=== PATIENT | female | born 1960 | race Caucasian/White ===

== ENCOUNTER 2016-07-22 16:51 | Emergency (ER) | payer SELFPAY ==
[~2016-07-22] VITALS: Ht 154.9 cm; Wt 70.2 kg
[~2016-07-22 16:51] MED LIST: ASPI81TA11 PO
[2016-07-22 17:05] VITALS: BP 131/69; PULSE 88; RESP 14; TEMP 99.4; O2SAT 94
--- NOTE | 2016-07-22 17:48 | PD ---
HPI Chief Complaint: Respiratory Symptoms Time Seen by Provider: 17:46 Travel History International Travel<30 days: No Contact w/Intl Traveler<30days: No Traveled to known affect area: No History of Present Illness HPI Patient comes in complaining of cough, congestion, and sore throat ongoing for 2 days. Patient has been using [id number] cold flu medication as well as her daughter's nebulizer with minimal to no relief of her symptoms. Denies anything making it worse. Denies any chest pain, shortness of breath, nausea, diarrhea, abdominal pain, back pain, or neck pain. Patient's daughter has similar but has improved. PFSH Past Medical History Anxiety: Yes Cardiovascular Problems: No Genitourinary: No Musculoskeletal: No Neurologic: No Reproductive: No Respiratory: No Tetanus Vaccination: > 5 Years Influenza Vaccination: No ?: Not Social History Alcohol Use: No Tobacco Use: No Substance Use: No Allergies-Medications (Allergen,Severity, Reaction): Coded Allergies: No Known Allergies (Unverified , 07/22/16) Reported Meds & Prescriptions Reported Meds & Active Scripts Active Medrol Dosepak (Methylprednisolone) 4 Mg Dspk 4 Mg PO DIRECTED Per Pharmacist direction Ventolin Hfa 18 GM Inh (Albuterol Sulfate) 90 Mcg/Act Aer 2 Puff INH Q4H PRN Review of Systems Except as stated in HPI: all other systems reviewed are Neg Physical Exam Narrative GENERAL: Well-developed, overly nourished, in no acute distress, and non-ill appearing. SKIN: Focused skin assessment warm and dry. HEAD: Atraumatic. Normocephalic. EYES: Pupils equal and round. EOMI. No scleral icterus. No injection or drainage. ENT: No nasal bleeding or discharge. Mucous membranes pink and moist. Tympanic membranes pearly jeffries bilaterally. Posterior pharynx nonerythematous without exudate. Uvula is midline. No tenderness to facial sinuses to palpation. NECK: Trachea midline. No cervical lymphadenopathy. Supple. No nuclear rigidity. CARDIOVASCULAR: Regular rate and rhythm. No murmur appreciated. RESPIRATORY: No accessory muscle use. No respiratory distress. Clear to auscultation. Breath sounds equal bilaterally. Hacking cough on exam. MUSCULOSKELETAL: No obvious deformities. No clubbing. No cyanosis. No edema. Full range of motion. NEUROLOGICAL: Awake and alert. No obvious cranial nerve deficits. Motor grossly within normal limits. Normal speech. PSYCHIATRIC: Appropriate mood and affect; insight and judgment normal. Data Data Last Documented VS Vital Signs Date Time Temp Pulse Resp B/P Pulse Ox O2 Delivery O2 Flow Rate FiO2 07/22/16 17:05 99.4 88 14 131/69 94 Orders Group A Rapid Strep Screen (07/22/16 17:45) Influenzae A/B Antigen (07/22/16 17:45) Chest, Single Ap (07/22/16 ) Strep Culture (Group A) (07/22/16 18:00) MDM Medical Decision Making Medical Screen Exam Complete: Yes Emergency Medical Condition: Yes Differential Diagnosis Influenza, strep pharyngitis, pneumonia, bronchitis, upper respiratory infection , viral syndrome, other Narrative Course Patients symptom complex of cough and congestion is consistent with viral URI. The patient is non-ill appearing and is in no respiratory distress and comfortable. The patient moves air well and oxygen saturations are normal. There is no clinical evidence to suggest pneumonia at this time. Plan of care and management were discussed with the patient who agreed with plan. The patient was instructed to follow up with their physician and instructed to return if worsens, progressively worsening shortness of breath or difficulty breathing, persistent fever, chest pains or discomfort, inability to keep medication or fluids down with or without vomiting, or as needed. Patient in no obvious distress upon re-evaluation. All pertinent laboratory/ Radiology result(s) discussed with patient. Patient was asked if they wanted to speak to my attending, which the patient did not wish to do at this time. Any questions/concerns in reference to patient diagnosis/condition discussed and clarified prior to patient's discharge. Reinforced sheer importance of close follow up with patient's primary physician or primary care clinic. Instructed patient to return to ED immediately, if symptoms return/worsen. Pt showed understanding of above instructions. Further instructions and recommendations were detailed in discharge paperwork. Pt ambulated without difficulty out of ED at discharge. Diagnosis Primary Impression: Upper respiratory infection, viral Patient Instructions: General Instructions, Upper Respiratory Infection (ED) Additional Instructions: Follow-up with your primary care physician in 3-5 days for reevaluation. Take all medication as prescribed. Drink plenty of non-caffeinated and nonalcoholic fluids. Return to the emergency department if symptoms get worse. Med/Other Pt SpecificInfo: Prescription(s) given Scripts Methylprednisolone Dosepak (Medrol Dosepak)4 Mg Dspk4 Mg PO DIRECTED #1 DSPK Ref 0 Per Pharmacist direction Prov:Keke Abreu DO 07/22/16 Albuterol 18 GM Inh (Ventolin Hfa 18 GM Inh)90 Mcg/Act Aer2 Puff INH Q4H PRN ( COUGH) #1 INHALER Ref 0 Prov:Keke Abreu DO 07/22/16 Disposition: 01 DISCHARGE HOME Condition: Stable Jg Rivera Jul 22, 2016 17:48
--- NOTE | 2016-07-22 19:26 | RADHPO ---
EXAM DATE/TIME: 07/22/2016 17:59 [facility] COMPARISON: CHEST SINGLE AP, November 09, 2015, 19:30. INDICATIONS : Short of breath, cough, chest pains MEDICAL HISTORY : None. SURGICAL HISTORY : None. ENCOUNTER: Initial ACUITY: 2 days PAIN SCORE: 5/10 LOCATION: Bilateral chest FINDINGS: A single view of the chest demonstrates the lungs to be symmetrically aerated without evidence of mas s, infiltrate or effusion. The cardiomediastinal contours are unremarkable. Osseous structures are intact. CONCLUSION: The lungs are clear. Tan Dewitt MD on July 22, 2016 at 19:25 Board Certified Radiologist. This report was verified electronically.
[2016-07-22] MEDS ORDERED: MEDR4PAK PO (19:28)
[2016-07-22] MEDS ORDERED: VENTAER INH (19:28)
== END 2016-07-22 19:37 | disposition home or self-care (01) ==
LOC: PHEFT 16:51
DX: J06.9 Acute upper respiratory infection, unspecified (principal); F41.9 Anxiety disorder, unspecified; Z79.899 Other long term (current) drug therapy
CPT/HCPCS: 71010; 87081; 87804; 87880; 99283

== ENCOUNTER 2016-07-24 14:01 | Emergency (ER) | payer SELFPAY ==
[~2016-07-24] VITALS: Ht 154.9 cm; Wt 59.0 kg
[~2016-07-24 14:01] MED LIST changes: -ASPI81TA11 PO; +MEDR4PAK PO; +VENTAER INH
[2016-07-24 14:06] VITALS: BP 152/81; PULSE 84; RESP 18; TEMP 99; O2SAT 97
[2016-07-24] MEDS ORDERED: SODIUM CHLOR 0.9% 1000 ML INJ 1,000 ML IV SCH (14:25)
[2016-07-24 14:27] LABS: BLOOD, URINE TRACE (NEG); GLUCOSE,URINE 500 mg/dL (NEG); KETONE, URINE TRACE mg/dL (NEG); NITRITE,URINE NEG (NEG)
[2016-07-24] MEDS ORDERED: SODIUM CHLORIDE 0.9% FLUSH 10 ML FLUSH IV FLUSH PRN (14:30)
[2016-07-24] MEDS ORDERED: KETOROLAC TROMETHAMINE 30 MG/ML (IVP) VIAL IVP ONE (14:30)
[2016-07-24] MEDS ORDERED: ONDANSETRON HCL 4 MG/2 ML VIAL IVP ONE (14:30)
--- NOTE | 2016-07-24 14:30 | PD ---
HPI Chief Complaint: Abdominal Pain Time Seen by Provider: 14:25 Travel History International Travel<30 days: No Contact w/Intl Traveler<30days: No Traveled to known affect area: No History of Present Illness HPI The patient is a 56-year-old female who presents emergency department for abdominal pain. The patient states she was seen in the emergency department approximately one week ago for upper respiratory infection and bronchitis. The patient was placed on prednisone and an inhaler. The patient has been having cough and cold symptoms over the last several days, then developed right lower quadrant abdominal pain this morning. The pain is located right lower quadrant , worse with coughing, mildly alleviated at rest, and tender to palpation. The patient denies any nausea, vomiting, dysuria, frequency, or urgency. The patient's last bowel movement was yesterday, normal per her report. The patient denies any fever, chills, or sweats. Symptoms are moderate. The pain is nonradiating and localized to the right lower quadrant. PFSH Past Medical History Anxiety: Yes Cardiovascular Problems: No Diminished Hearing: No Genitourinary: No Musculoskeletal: No Neurologic: No Reproductive: No Respiratory: Yes (asthma) Influenza Vaccination: No ?: Not Social History Alcohol Use: No Tobacco Use: No Substance Use: No Allergies-Medications (Allergen,Severity, Reaction): Coded Allergies: No Known Allergies (Unverified , 07/24/16) Reported Meds & Prescriptions Reported Meds & Active Scripts Active Ultram (Tramadol HCl) 50 Mg Tab 50 Mg PO Q4H PRN Medrol Dosepak (Methylprednisolone) 4 Mg Dspk 4 Mg PO DIRECTED Per Pharmacist direction Ventolin Hfa 18 GM Inh (Albuterol Sulfate) 90 Mcg/Act Aer 2 Puff INH Q4H PRN Review of Systems Except as stated in HPI: all other systems reviewed are Neg General / Constitutional: No: Fever HENT: Positive: Congestion Respiratory: Positive: Cough Gastrointestinal: Positive: Abdominal Pain, No: Nausea, Vomiting, Diarrhea, Changes in Bowel Habits Genitourinary: No: Urgency, Frequency, Dysuria Musculoskeletal: No: Myalgias Skin: No Rash Physical Exam Narrative GENERAL: Awake, alert, pleasant 56-year-old female who appears her stated age and is in no acute respiratory distress. SKIN: Focused skin assessment warm/dry. HEAD: Atraumatic. Normocephalic. EYES: No injection or drainage. ENT: No nasal bleeding or discharge. Mucous membranes pink and moist. NECK: Trachea midline. No JVD. CARDIOVASCULAR: Regular rate and rhythm. No murmur appreciated. RESPIRATORY: No accessory muscle use. Clear to auscultation. Breath sounds equal bilaterally. GASTROINTESTINAL: Abdomen soft, tender palpation right lower quadrant. No rebound tenderness. Back: No CVA tenderness. MUSCULOSKELETAL: No obvious deformities. No clubbing. No cyanosis. No edema. NEUROLOGICAL: Awake and alert. No obvious cranial nerve deficits. Motor grossly within normal limits. Normal speech. PSYCHIATRIC: Appropriate mood and affect; insight and judgment normal. Data Data Last Documented VS Vital Signs Date Time Temp Pulse Resp B/P Pulse Ox O2 Delivery O2 Flow Rate FiO2 07/24/16 17:04 88 18 144/76 98 07/24/16 14:37 Room Air 07/24/16 14:06 99.0 Orders Urinalysis - C+S If Indicated (07/24/16 14:15) Complete Blood Count With Diff (07/24/16 14:25) Comprehensive Metabolic Panel (07/24/16 14:25) Lipase (07/24/16 14:25) Iv Access Insert/Monitor (07/24/16 14:25) Ecg Monitoring (07/24/16 14:25) Oximetry (07/24/16 14:25) Ondansetron Inj (Zofran Inj) (07/24/16 14:30) Sodium Chlor 0.9% 1000 Ml Inj (Ns 1000 M (07/24/16 14:25) Sodium Chloride 0.9% Flush (Ns Flush) (07/24/16 14:30) Ketorolac Inj (Toradol Inj) (07/24/16 14:30) Ct Abd/Pel W/O Iv Contrast (07/24/16 ) Labs Laboratory Tests Test 07/24/16 07/24/16 14:15 14:25 Urine Collection Type CLEAN CATCH Urine Color YELLOW Urine Turbidity CLEAR Urine pH 6.0 Urine Specific [place] 1.025 Urine Protein 30 mg/dL Urine Glucose (UA) 500 mg/dL Urine Ketones TRACE mg/dL Urine Occult Blood TRACE Urine Nitrite NEG Urine Bilirubin NEG Urine Leukocyte Esterase NEG Urine RBC 0-3 /hpf Urine WBC 0-2 /hpf Urine Squamous Epithelial 6-8 /hpf Cells Urine Hyaline Casts 15-19 /lpf Microscopic Urinalysis Comment CULT NOT INDICATED Urine Collection Time 14:15 White Blood Count 11.6 TH/MM3 Red Blood Count 4.66 MIL/MM3 Hemoglobin 13.4 GM/DL Hematocrit 40.5 % Mean Corpuscular Volume 87.0 FL Mean Corpuscular Hemoglobin 28.8 PG Mean Corpuscular Hemoglobin 33.1 % Concent Red Cell Distribution Width 12.7 % Platelet Count 157 TH/MM3 Mean Platelet Volume 9.5 FL Neutrophils (%) (Auto) 80.6 % Lymphocytes (%) (Auto) 12.1 % Monocytes (%) (Auto) 6.8 % Eosinophils (%) (Auto) 0.1 % Basophils (%) (Auto) 0.4 % Neutrophils # (Auto) 9.4 TH/MM3 Lymphocytes # (Auto) 1.4 TH/MM3 Monocytes # (Auto) 0.8 TH/MM3 Eosinophils # (Auto) 0.0 TH/MM3 Basophils # (Auto) 0.0 TH/MM3 CBC Comment DIFF FINAL Differential Comment Sodium Level 135 MEQ/L Potassium Level 4.4 MEQ/L Chloride Level 100 MEQ/L Carbon Dioxide Level 24.7 MEQ/L Anion Gap 10 MEQ/L Blood Urea Nitrogen 16 MG/DL Creatinine 1.10 MG/DL Estimat Glomerular Filtration 51 ML/MIN Rate Random Glucose 284 MG/DL Calcium Level 9.1 MG/DL Total Bilirubin 0.3 MG/DL Aspartate Amino Transf 52 U/L (AST/SGOT) Alanine Aminotransferase 73 U/L (ALT/SGPT) Alkaline Phosphatase 69 U/L Total Protein 8.0 GM/DL Albumin 3.3 GM/DL Lipase 299 U/L [facility] Medical Decision Making Medical Screen Exam Complete: Yes Emergency Medical Condition: Yes Medical Record Reviewed: Yes Interpretation(s) Laboratory Tests Test 07/24/16 07/24/16 14:15 14:25 Urine Collection Type CLEAN CATCH Urine Color YELLOW Urine Turbidity CLEAR Urine pH 6.0 Urine Specific [place] 1.025 Urine Protein 30 mg/dL Urine Glucose (UA) 500 mg/dL Urine Ketones TRACE mg/dL Urine Occult Blood TRACE Urine Nitrite NEG Urine Bilirubin NEG Urine Leukocyte Esterase NEG Urine RBC 0-3 /hpf Urine WBC 0-2 /hpf Urine Squamous Epithelial 6-8 /hpf Cells Urine Hyaline Casts 15-19 /lpf Microscopic Urinalysis Comment CULT NOT INDICATED Urine Collection Time 14:15 White Blood Count 11.6 TH/MM3 Red Blood Count 4.66 MIL/MM3 Hemoglobin 13.4 GM/DL Hematocrit 40.5 % Mean Corpuscular Volume 87.0 FL Mean Corpuscular Hemoglobin 28.8 PG Mean Corpuscular Hemoglobin 33.1 % Concent Red Cell Distribution Width 12.7 % Platelet Count 157 TH/MM3 Mean Platelet Volume 9.5 FL Neutrophils (%) (Auto) 80.6 % Lymphocytes (%) (Auto) 12.1 % Monocytes (%) (Auto) 6.8 % Eosinophils (%) (Auto) 0.1 % Basophils (%) (Auto) 0.4 % Neutrophils # (Auto) 9.4 TH/MM3 Lymphocytes # (Auto) 1.4 TH/MM3 Monocytes # (Auto) 0.8 TH/MM3 Eosinophils # (Auto) 0.0 TH/MM3 Basophils # (Auto) 0.0 TH/MM3 CBC Comment DIFF FINAL Differential Comment Sodium Level 135 MEQ/L Potassium Level 4.4 MEQ/L Chloride Level 100 MEQ/L Carbon Dioxide Level 24.7 MEQ/L Anion Gap 10 MEQ/L Blood Urea Nitrogen 16 MG/DL Creatinine 1.10 MG/DL Estimat Glomerular Filtration 51 ML/MIN Rate Random Glucose 284 MG/DL Calcium Level 9.1 MG/DL Total Bilirubin 0.3 MG/DL Aspartate Amino Transf 52 U/L (AST/SGOT) Alanine Aminotransferase 73 U/L (ALT/SGPT) Alkaline Phosphatase 69 U/L Total Protein 8.0 GM/DL Albumin 3.3 GM/DL Lipase 299 U/L Differential Diagnosis Differential diagnosis includes appendicitis, mesenteric adenitis, pyelonephritis, UTI, URI, viral syndrome, nephrolithiasis, hydronephrosis. Narrative Course IV was established, labs are drawn and sent, and the patient was placed on cardiac telemetry monitoring and continuous pulse oximetry monitoring. CT of the abdomen and pelvis was ordered to evaluate for appendicitis. The patient was administered Toradol, Zofran, and IV fluids. Laboratory evaluation is essentially unremarkable. The patient was signed out to the oncoming physician at [address] of the abdomen and pelvis results pending. Diagnosis Primary Impression: Rectus sheath hematoma Qualified Code: S30.1XXA - Rectus sheath hematoma, initial encounter Patient Instructions: General Instructions Scripts Tramadol (Ultram)50 Mg Tab50 Mg PO Q4H PRN (PAIN) #12 TAB Ref 0 Prov:Winsome Randolph MD 07/24/16 Disposition: 01 DISCHARGE HOME Condition: Stable Cristo Thorne MD Jul 24, 2016 14:29
[2016-07-24 14:35] LABS: METHOD OF COLLECTION CLEAN CATCH; URINE COLOR YELLOW (YELLW/STRAW)
[2016-07-24 14:36] LABS: COMMENT (UR) CULT NOT INDICATED; CULTURE IF INDICATED CULT NOT INDICATED; HYALINE CAST, URINE 15-19 /lpf (RARE); RBC, URINE 0-3 /hpf (0-3); WBC, URINE 0-2 /hpf (0-5)
[2016-07-24 14:37] VITALS: BP 144/79; PULSE 81; RESP 18; O2SAT 98
[2016-07-24 14:39] LABS: AUTOMATED NEUTROPHIL # 9.4 TH/MM3 (1.8-7.7); BASOPHIL % 0.4 % (0.0-2.0); EOSINOPHIL % 0.1 % (0.0-4.0); HEMATOCRIT 40.5 % (35.0-46.0); LYMPH % 12.1 % (9.0-44.0); LYMPHOCYTE # 1.4 TH/MM3 (1.0-4.8); MEAN CORPUSCULAR HEMOGLOBIN 28.8 PG (27.0-34.0); MEAN CORPUSCULAR HGB CONC 33.1 % (32.0-36.0); MONO % 6.8 % (0.0-8.0); NEUT % 80.6 % (16.0-70.0); PLATELET COUNT 157 TH/MM3 (150-450); RED BLOOD COUNT 4.66 MIL/MM3 (4.00-5.30); RED CELL DISTRIBUTION WIDTH 12.7 % (11.6-17.2); WHITE BLOOD COUNT 11.6 TH/MM3 (4.0-11.0)
[2016-07-24 14:47] LABS: HEMO FLAGS DIFF FINAL
[2016-07-24 14:54] LABS: CHLORIDE 100 MEQ/L (98-107); POTASSIUM 4.4 MEQ/L (3.5-5.1); SODIUM (NA) 135 MEQ/L (136-145)
[2016-07-24 14:58] LABS: ANION GAP 10 MEQ/L (5-15); BICARBONATE 24.7 MEQ/L (21.0-32.0); BLOOD UREA NITROGEN 16 MG/DL (7-18)
[2016-07-24 15:01] LABS: ALT (GPT) 73 U/L (10-53); AST (GOT) 52 U/L (15-37); GLOMERULAR FILTRATION RATE 51 ML/MIN (>89)
[2016-07-24 15:03] LABS: TOTAL BILIRUBIN ADULT 0.3 MG/DL (0.2-1.0)
[2016-07-24 15:04] LABS: ALKALINE PHOSPHATASE 69 U/L (45-117)
[2016-07-24 15:42] VITALS: BP 135/70; PULSE 76; RESP 18; O2SAT 97
--- NOTE | 2016-07-24 16:08 | RADHPO ---
EXAM DATE/TIME: 07/24/2016 15:04 [facility] COMPARISON: CT BRAIN W/O CONTRAST, November 09, 2015, 19:52. INDICATIONS : Lower right abdomen pain. ORAL CONTRAST: No oral contrast ingested. RADIATION DOSE: 13.00 CTDIvol (mGy) MEDICAL HISTORY : Asthma SURGICAL HISTORY : None. ENCOUNTER: Initial ACUITY: 1 day PAIN SCALE: 4/10 LOCATION: Right abdomen TECHNIQUE: Volumetric scanning of the abdomen and pelvis was performed. Using automated exposure control and ad justment of the mA and/or kV according to patient size, radiation dose was kept as low as reasonably achievable to obtain optimal diagnostic quality images. FINDINGS: The limited portion of the lung bases visualized demonstrate some small areas of inflammatory appeari ng in the air way disease in the medial right lower lobe. There are scattered low attenuation lesions within the liver. The largest measures 2.0 x 1.6 cm. Thes e are nonspecific in appearance by this noncontrast CT. The spleen, pancreas, adrenal glands and kidneys are intact. There is no retroperitoneal adenopathy. The abdominal aorta is normal caliber. The visualized loops o f small and large bowel in the upper abdomen are unremarkable. Examination the anterior abdominal wall demonstrates diffuse thickening of the rectus abdominis muscl e most consistent with a rectus hematoma. No intraperitoneal hemorrhage is seen. There is no free fluid within the pelvis. No iliac or inguinal adenopathy is identified. The visualized bony structures are grossly intact. CONCLUSION: 1. Enlargement of the right rectus muscle. It measures approximately 7.3 x 3.9 cm. Findings would be consistent with a rectus sheath hematoma. 2. Scattered low attenuation lesions within the liver probably representing simple cysts but nonspeci fic in appearance by noncontrast imaging. Claudio Cowart MD on July 24, 2016 at 16:04 Board Certified Radiologist. This report was verified electronically.
[2016-07-24] MEDS ORDERED: ULTR50TA5 PO (16:53)
--- NOTE | 2016-07-24 16:53 | PD ---
Physical Exam Date Seen by Provider: Jul 24, 2016 Narrative Patient was signed out to me at 4 PM pending labs and CT. She is being evaluated for right lower quadrant abdominal pain. Data Data Last Documented VS Vital Signs Date Time Temp Pulse Resp B/P Pulse Ox O2 Delivery O2 Flow Rate FiO2 07/24/16 15:42 76 18 135/70 97 07/24/16 14:37 Room Air 07/24/16 14:06 99.0 Orders Urinalysis - C+S If Indicated (07/24/16 14:15) Complete Blood Count With Diff (07/24/16 14:25) Comprehensive Metabolic Panel (07/24/16 14:25) Lipase (07/24/16 14:25) Iv Access Insert/Monitor (07/24/16 14:25) Ecg Monitoring (07/24/16 14:25) Oximetry (07/24/16 14:25) Ondansetron Inj (Zofran Inj) (07/24/16 14:30) Sodium Chlor 0.9% 1000 Ml Inj (Ns 1000 M (07/24/16 14:25) Sodium Chloride 0.9% Flush (Ns Flush) (07/24/16 14:30) Ketorolac Inj (Toradol Inj) (07/24/16 14:30) Ct Abd/Pel W/O Iv Contrast (07/24/16 ) Labs Laboratory Tests Test 07/24/16 07/24/16 14:15 14:25 Urine Collection Type CLEAN CATCH Urine Color YELLOW Urine Turbidity CLEAR Urine pH 6.0 Urine Protein 30 mg/dL Urine Glucose (UA) 500 mg/dL Urine Ketones TRACE mg/dL Urine Occult Blood TRACE Urine Nitrite NEG Urine Bilirubin NEG Urine Leukocyte Esterase NEG Urine RBC 0-3 /hpf Urine WBC 0-2 /hpf Urine Squamous Epithelial 6-8 /hpf Cells Urine Hyaline Casts 15-19 /lpf Microscopic Urinalysis Comment CULT NOT INDICATED Urine Collection Time 14:15 White Blood Count 11.6 TH/MM3 Red Blood Count 4.66 MIL/MM3 Hemoglobin 13.4 GM/DL Hematocrit 40.5 % Mean Corpuscular Volume 87.0 FL Mean Corpuscular Hemoglobin 28.8 PG Mean Corpuscular Hemoglobin 33.1 % Concent Red Cell Distribution Width 12.7 % Platelet Count 157 TH/MM3 Mean Platelet Volume 9.5 FL Neutrophils (%) (Auto) 80.6 % Lymphocytes (%) (Auto) 12.1 % Monocytes (%) (Auto) 6.8 % Eosinophils (%) (Auto) 0.1 % Basophils (%) (Auto) 0.4 % Neutrophils # (Auto) 9.4 TH/MM3 Lymphocytes # (Auto) 1.4 TH/MM3 Monocytes # (Auto) 0.8 TH/MM3 Eosinophils # (Auto) 0.0 TH/MM3 Basophils # (Auto) 0.0 TH/MM3 CBC Comment DIFF FINAL Differential Comment Sodium Level 135 MEQ/L Potassium Level 4.4 MEQ/L Chloride Level 100 MEQ/L Carbon Dioxide Level 24.7 MEQ/L Anion Gap 10 MEQ/L Blood Urea Nitrogen 16 MG/DL Creatinine 1.10 MG/DL Estimat Glomerular Filtration 51 ML/MIN Rate Random Glucose 284 MG/DL Calcium Level 9.1 MG/DL Total Bilirubin 0.3 MG/DL Aspartate Amino Transf 52 U/L (AST/SGOT) Alanine Aminotransferase 73 U/L (ALT/SGPT) Alkaline Phosphatase 69 U/L Total Protein 8.0 GM/DL Albumin 3.3 GM/DL Lipase 299 U/L [facility] Supervised Visit with ANTHONY: No Narrative Course CBC & BMP Diagram 07/24/16 14:25 Last Impressions Abdomen/Pelvis CT 07/24/16 0000 Signed Impressions: Service Date/Time: Sunday, July 24, 2016 15:04 - CONCLUSION: 1. Enlargement of the right rectus muscle. It measures approximately 7.3 x 3.9 cm. Findings would be consistent with a rectus sheath hematoma. 2. Scattered low attenuation lesions within the liver probably representing simple cysts but nonspecific in appearance by noncontrast imaging. Claudio Cowart MD This patient was seen here last week for bronchitis. I suspect that she has a rectus sheath hematoma from coughing. Diagnosis Primary Impression: Abdominal pain Qualified Code: R10.31 - Right lower quadrant abdominal pain Additional Impression: Rectus sheath hematoma Qualified Code: S30.1XXA - Rectus sheath hematoma, initial encounter Referrals: Primary Care Physician Patient Instructions: General Instructions, Hematoma (ED) Med/Other Pt SpecificInfo: Prescription(s) given Scripts Tramadol (Ultram)50 Mg Tab50 Mg PO Q4H PRN (PAIN) #12 TAB Ref 0 Prov:Winsome Randolph MD 07/24/16 Disposition: 01 DISCHARGE HOME Condition: Stable Winsome Randolph MD Jul 24, 2016 16:53
[2016-07-24 17:04] VITALS: BP 144/76
== END 2016-07-24 17:04 | disposition home or self-care (01) ==
LOC: PHED 14:01
DX: S30.1XXA Contusion of abdominal wall, initial encounter (principal); F41.9 Anxiety disorder, unspecified; J45.909 Unspecified asthma, uncomplicated; X58.XXXA Exposure to other specified factors, initial encounter
CPT/HCPCS: 74176; 80053; 81001; 83690; 85025; 96361; 96374; 96375; 99284; J1885; J2405; J7030